=== PATIENT | female | born 1945 | race Caucasian/White ===

== ENCOUNTER 2019-01-22 05:43 | Inpatient (IN) ==
[2019-01-22] MEDS ORDERED: Lactated Ringers 1,000 ML PRIMARY IV ONE ×2 (05:58→06:00)
[2019-01-22] MEDS ORDERED: Vancomycin Inj 1.25gm vial IV ONE ×2 (05:58→19:08)
[2019-01-22] MEDS ORDERED: ceFAZolin Inj 2gm (Premix) 2 GM/50 ML BAG IV ONE ×2 (05:58→06:00)
[2019-01-22] MEDS ORDERED: LIDOCAINE W/ SODIUM BICARB 0.5 ML SYR ONE (05:59)
[2019-01-22] MEDS ORDERED: Sodium Chloride 0.9% 250 ML ONE (05:59)
[2019-01-22] MEDS ORDERED: Nasal Sanitizer POPSWAB ampule 3 AMP (Nozin) PREOP DOSE ENOS SCH (06:00)
[2019-01-22] MEDS ORDERED: LIDOCAINE W/ SODIUM BICARB 0.5 ML SYR SUBD ONE (06:00)
[2019-01-22] MEDS ORDERED: Vancomycin-PHA to Dose IV PRN (06:00)
[2019-01-22 06:16] LABS: BILIRUBIN,URINE NEGATIVE (NEG); CLARITY,URINE CLEAR (CLEAR); COLOR,URINE YELLOW (Y); GLUCOSE, URINE (UA) NEGATIVE (NEG); OCCULT BLOOD,URINE NEGATIVE (NEG); PROTEIN,URINE NEGATIVE (NEG); UROBILINOGEN,URINE 0.2 EU/dL (0.2)
[2019-01-22 06:23] LABS: RBC,URINE 0 /hpf; URINE SAMPLE TYPE CLEAN CATCH URINE
[2019-01-22 06:24] LABS: BACTERIA,URINE MODERATE; SQUAMOUS EPITHELIAL CELL,UR MODERATE
[2019-01-22] MEDS ORDERED: BUPivacaine Inj 0.25% PF - 10ml vial ONE (07:27)
[2019-01-22] MEDS ORDERED: Vancomycin Inj 1gm vial ONE (07:28)
[2019-01-22] MEDS ORDERED: BACITRACIN 50,000 UNIT VIAL IRRIG ONE (07:28)
[2019-01-22] MEDS ORDERED: Sodium Chloride 0.9% vial 50 ML ONE (07:28)
[2019-01-22] MEDS ORDERED: BUPIVACAINE 0.25% W/ EPI - 10 ML VIAL ONE (07:28)
[2019-01-22] MEDS ORDERED: BUPivacaine Liposome/PF (Exparel) Inj 20ml vial INFIL ONE (07:28)
[2019-01-22] MEDS ORDERED: Gentamicin Inj 40 MG/ML VIAL ONE (07:28)
[2019-01-22] MEDS ORDERED: HYDROmorphone 2 MG/1 ML ONE ×2 (07:31→07:32)
[2019-01-22] MEDS ORDERED: ROCURONIUM 10 MG/1 ML - 5 ML VIAL IVP ONE (07:34)
[2019-01-22] MEDS ORDERED: Hetastarch 6% + NS 1,000 ML IV ONE (08:08)
[2019-01-22] MEDS ORDERED: LIDOCAINE HCL 2 % 10 ML JELLY URO-JECT TOPICAL PRN (08:10)
[2019-01-22] MEDS ORDERED: TRANEXAMIC ACID 1,000 MG / 10 ML VIAL ONE (08:23)
[2019-01-22] MEDS ORDERED: fentaNYL Inj 100 MCG/2 ML VIAL IVP PRN (13:43)
[2019-01-22] MEDS ORDERED: LIDOCAINE W/ SODIUM BICARB 0.5 ML SYR SUBD PRN (13:43)
[2019-01-22] MEDS ORDERED: HYDROmorphone 2 MG/1 ML IVP PRN (13:43)
[2019-01-22] MEDS ORDERED: ONDANSETRON 4 MG/2 ML VIAL IVP PRN ×2 (13:43→14:19)
[2019-01-22] MEDS ORDERED: Prochlorperazine Edisylate Inj 10mg/2ml vial IVP PRN ×2 (13:43→14:19)
[2019-01-22] MEDS ORDERED: PROMETHAZINE 25 MG/1 ML VIAL IM PRN (14:19)
[2019-01-22] MEDS ORDERED: HYDROcodone-APAP 10 MG-325 MG TABLET PO PRN (14:19)
[2019-01-22] MEDS ORDERED: Fleet Enema 133ml RECTAL PRN (14:19)
[2019-01-22] MEDS ORDERED: Insulin NPH/Reg 70/30 Kwikpen 100 UNIT/ML INSULN.PEN SUBCUT SCH (14:19)
[2019-01-22] MEDS ORDERED: DOCUSATE 100 MG CAPSULE PO PRN (14:19)
[2019-01-22] MEDS ORDERED: MAGNESIUM 400 MG/5 ML - 30 ML (MILK OF MAGNESIA) PO PRN (14:19)
[2019-01-22] MEDS ORDERED: MAGNESIUM CITRATE 296 ML SOLUTION PO PRN (14:19)
[2019-01-22] MEDS ORDERED: oxyCODONE-ACETAMINOPHEN 5-325 TAB PO PRN (14:19)
[2019-01-22] MEDS ORDERED: DIAZEPAM 10 MG/2 ML (5 MG/1 ML) CARPUJECT IVP PRN (14:19)
[2019-01-22] MEDS ORDERED: Vancomycin-PHA to Dose IV SCH (14:19)
[2019-01-22] MEDS ORDERED: HYDROcodone-APAP 7.5 MG-325 MG TABLET PO PRN (14:19)
[2019-01-22] MEDS ORDERED: DIAZEPAM 5 MG TABLET PO PRN (14:19)
[2019-01-22] MEDS ORDERED: HYDROcodone-APAP 5 MG -325 MG TABLET PO PRN (14:19)
[2019-01-22] MEDS ORDERED: Ondansetron ODT Tab 4 MG TAB PO PRN (14:19)
[2019-01-22] MEDS ORDERED: BISACODYL 5 MG TABLET PO PRN (14:19)
[2019-01-22] MEDS: ceFAZolin Inj 2gm (Premix) 2 GM/50 ML BAG IV SCH (16:59)
[2019-01-22] MEDS ORDERED: INSULIN NPH HUMAN ISOPHANE SUBCUT SCH (19:00)
[2019-01-22] MEDS ORDERED: INSULIN NPH HUMAN ISOPHANE 30 UNIT SUBCUT SCH (19:00)
[2019-01-22] MEDS: metFORMIN 500 MG TABLET PO SCH (20:47)
[2019-01-22] MEDS: ATORVASTATIN 10 MG TABLET PO SCH (20:48)
[2019-01-22] MEDS: Oxybutynin ER Tab 5 MG TAB PO SCH (20:48)
[2019-01-22] MEDS: MORPHINE SULFATE 2 MG/1 ML IVP PRN (20:51)
[2019-01-23] MEDS: MORPHINE SULFATE 2 MG/1 ML IVP PRN (00:17)
[2019-01-23] MEDS: ceFAZolin Inj 2gm (Premix) 2 GM/50 ML BAG IV SCH (00:20)
[2019-01-23] MEDS: oxyCODONE/APAP 7.5/325 Tab 1 TAB TAB PO PRN ×2 (01:55→05:40)
[2019-01-23 04:28] LABS: BASOPHILS # (AUTO) 0.02 10*3/UL; BASOPHILS % (AUTO) 0.2 % (0-1); EOSINOPHILS # (AUTO) 0 10*3/UL; EOSINOPHILS % (AUTO) 0 % (0-8); Hematocrit [HCT] 30.5 % (37.0-47.0); MEAN CORPUSCULAR HGB CONC 32.8 g/dL (33-37); MEAN CORPUSCULAR VOLUME 93.3 FL (81-99); MEAN PLATELET VOLUME 10.2 FL (7.4-12.2); MONOCYTES # (AUTO) 0.83 10*3/UL (0.3-0.8); MONOCYTES % (AUTO) 6.6 % (5-15); NEUTROPHILS # (AUTO) 10.84 10*3/UL; NEUTROPHILS % (AUTO) 85.7 % (50-80); RED BLOOD COUNT 3.27 10^6/uL (4.20-5.40)
[2019-01-23 04:34] LABS: PLATELET MORPHOLOGY COMMENT NORMAL MORPHOLOGY (NORM); RBC MORPHOLOGY COMMENT NORMAL MORPHOLOGY (NORM); WBC MORPHOLOGY COMMENT NORMAL MORPHOLOGY (NORM)
[2019-01-23 04:38] LABS: BLOOD UREA NITROGEN 16 mg/dL (7-22); BUN/CREATININE RATIO 22.85 (6-20)
[2019-01-23] MEDS: LEVOTHYROXINE 112 MCG TABLET PO SCH (05:40)
[2019-01-23] MEDS ORDERED: CYCLOBENZAPRINE 10 MG TABLET PO PRN (06:30)
[2019-01-23] MEDS: Oxybutynin ER Tab 5 MG TAB PO SCH (09:16)
[2019-01-23] MEDS: CHOLECALCIFEROL (VITAMIN D3) 5,000 IU CAPSULE PO SCH (09:16)
[2019-01-23] MEDS: LOSARTAN 25 MG TABLET PO SCH (09:17)
[2019-01-23] MEDS: metFORMIN 500 MG TABLET PO SCH ×2 (09:17→20:16)
[2019-01-23 11:40] LABS: BILIRUBIN,URINE NEGATIVE (NEG); CLARITY,URINE Slightly Cloudy (CLEAR); COLOR,URINE YELLOW (Y); GLUCOSE, URINE (UA) 500 mg/dL (NEG); OCCULT BLOOD,URINE MODERATE (NEG); PROTEIN,URINE TRACE mg/dl (NEG); UROBILINOGEN,URINE 0.2 EU/dL (0.2)
[2019-01-23] MEDS: cefTRIAXone Inj 2 GM in Sodium Chloride 0.9% 100 ML IV SCH (11:43)
[2019-01-23 11:54] LABS: BACTERIA,URINE RARE; SQUAMOUS EPITHELIAL CELL,UR FEW; URINE SAMPLE TYPE CATH SPECIMEN
[2019-01-23] MEDS: ACETAMINOPHEN 325 MG TABLET PO PRN ×2 (14:08→20:15)
[2019-01-23] MEDS: ATORVASTATIN 10 MG TABLET PO SCH (20:17)
[2019-01-23] MEDS: INSULIN NPH HUMAN ISOPHANE 20 UNIT SUBCUT SCH (20:19)
[2019-01-24 05:14] LABS: BASOPHILS # (AUTO) 0.02 10*3/UL; BASOPHILS % (AUTO) 0.1 % (0-1); EOSINOPHILS # (AUTO) 0 10*3/UL; EOSINOPHILS % (AUTO) 0 % (0-8); Hematocrit [HCT] 31.1 % (37.0-47.0); Hemoglobin [HGB] 10.2 g/dL (12.0-16.0); LYMPHOCYTES # (AUTO) 0.89 10*3/uL; MEAN CORPUSCULAR HGB CONC 32.8 g/dL (33-37); MEAN CORPUSCULAR VOLUME 92.8 FL (81-99); MEAN PLATELET VOLUME 10.6 FL (7.4-12.2); MONOCYTES % (AUTO) 6.3 % (5-15); NEUTROPHILS # (AUTO) 12.39 10*3/UL; NEUTROPHILS % (AUTO) 86.8 % (50-80); RED BLOOD COUNT 3.35 10^6/uL (4.20-5.40)
[2019-01-24] MEDS: ACETAMINOPHEN 325 MG TABLET PO PRN ×2 (05:15→12:55)
[2019-01-24] MEDS: LEVOTHYROXINE 112 MCG TABLET PO SCH (05:15)
[2019-01-24 05:16] LABS: PLATELET MORPHOLOGY COMMENT NORMAL MORPHOLOGY (NORM); RBC MORPHOLOGY COMMENT NORMAL MORPHOLOGY (NORM); WBC MORPHOLOGY COMMENT NORMAL MORPHOLOGY (NORM)
[2019-01-24 05:29] LABS: BLOOD UREA NITROGEN 14 mg/dL (7-22); SERUM ALBUMIN 2.7 g/dL (3.5-4.8)
[2019-01-24] MEDS: INSULIN NPH HUMAN ISOPHANE 20 UNIT SUBCUT SCH (07:16)
[2019-01-24] MEDS: metFORMIN 500 MG TABLET PO SCH ×2 (08:25→20:28)
[2019-01-24] MEDS: LOSARTAN 25 MG TABLET PO SCH (08:26)
[2019-01-24] MEDS: CHOLECALCIFEROL (VITAMIN D3) 5,000 IU CAPSULE PO SCH (08:26)
[2019-01-24] MEDS: cefTRIAXone Inj 2 GM in Sodium Chloride 0.9% 100 ML IV SCH (11:29)
[2019-01-24] MEDS: Insulin Lispro Flexpen 300 UNIT/3 ML INSULN.PEN SUBCUT SCH ×2 (11:40→16:32)
[2019-01-24] MEDS: INSULIN NPH HUMAN ISOPHANE SUBCUT SCH (20:27)
[2019-01-24] MEDS: ATORVASTATIN 10 MG TABLET PO SCH (20:28)
[2019-01-25] MEDS: ACETAMINOPHEN 325 MG TABLET PO PRN (04:23)
[2019-01-25] MEDS: LEVOTHYROXINE 112 MCG TABLET PO SCH (04:30)
[2019-01-25 04:33] VITALS: RESP 20
[2019-01-25 05:23] LABS: BASOPHILS # (AUTO) 0.02 10*3/UL; BASOPHILS % (AUTO) 0.1 % (0-1); EOSINOPHILS # (AUTO) 0.03 10*3/UL; EOSINOPHILS % (AUTO) 0.2 % (0-8); Hemoglobin [HGB] 9.4 g/dL (12.0-16.0); LYMPHOCYTES # (AUTO) 1.73 10*3/uL; MEAN CORPUSCULAR HGB CONC 32.4 g/dL (33-37); MEAN CORPUSCULAR VOLUME 92.9 FL (81-99); MEAN PLATELET VOLUME 10.6 FL (7.4-12.2); MONOCYTES # (AUTO) 0.96 10*3/UL (0.3-0.8); NEUTROPHILS # (AUTO) 10.98 10*3/UL; NEUTROPHILS % (AUTO) 79.8 % (50-80); RED BLOOD COUNT 3.12 10^6/uL (4.20-5.40)
[2019-01-25 05:24] LABS: PLATELET MORPHOLOGY COMMENT NORMAL MORPHOLOGY (NORM); RBC MORPHOLOGY COMMENT NORMAL MORPHOLOGY (NORM); WBC MORPHOLOGY COMMENT NORMAL MORPHOLOGY (NORM)
[2019-01-25 06:44] VITALS: BP 145/78; TEMP 99; O2SAT 95
[2019-01-25] MEDS: INSULIN NPH HUMAN ISOPHANE SUBCUT SCH (07:19)
[2019-01-25] MEDS: Insulin Lispro Flexpen 300 UNIT/3 ML INSULN.PEN SUBCUT SCH (07:19)
[2019-01-25] MEDS: CHOLECALCIFEROL (VITAMIN D3) 5,000 IU CAPSULE PO SCH (08:25)
[2019-01-25] MEDS: LOSARTAN 25 MG TABLET PO SCH (08:25)
[2019-01-25] MEDS: metFORMIN 500 MG TABLET PO SCH (08:25)
[2019-01-25] MEDS: cefTRIAXone Inj 2 GM in Sodium Chloride 0.9% 100 ML IV SCH (10:54)
== END 2019-01-25 12:14 | disposition home or self-care (01) | DRG 455 ==
LOC: OPS 05:43 → MED/SURG 14:25
PROVIDERS: ADMIT Neurological Surgery; ATTEND Neurological Surgery

== ENCOUNTER 2019-02-21 05:55 | Inpatient (IN) ==
[2019-02-21] MEDS ORDERED: Lactated Ringers 1,000 ML PRIMARY IV ONE ×2 (06:00→08:26)
[2019-02-21] MEDS ORDERED: LIDOCAINE W/ SODIUM BICARB 0.5 ML SYR SUBD ONE (06:00)
[2019-02-21] MEDS ORDERED: Vancomycin-PHA to Dose IV PRN ×2 (06:00→11:15)
[2019-02-21] MEDS ORDERED: ceFAZolin Inj 2gm (Premix) 2 GM/50 ML BAG IV ONE (06:00)
[2019-02-21] MEDS ORDERED: Nasal Sanitizer POPSWAB ampule 3 AMP (Nozin) PREOP DOSE ENOS SCH (06:00)
[2019-02-21 06:44] LABS: BASOPHILS # (AUTO) 0.02 10*3/UL; BASOPHILS % (AUTO) 0.3 % (0-1); EOSINOPHILS # (AUTO) 0.15 10*3/UL; EOSINOPHILS % (AUTO) 2.1 % (0-8); Hematocrit [HCT] 36.9 % (37.0-47.0); LYMPHOCYTES # (AUTO) 2.28 10*3/uL; MEAN CORPUSCULAR HGB CONC 32.5 g/dL (33-37); MEAN CORPUSCULAR VOLUME 92.3 FL (81-99); MEAN PLATELET VOLUME 9.9 FL (7.4-12.2); MONOCYTES # (AUTO) 0.49 10*3/UL (0.3-0.8); MONOCYTES % (AUTO) 6.8 % (5-15); NEUTROPHILS # (AUTO) 4.26 10*3/UL; NEUTROPHILS % (AUTO) 59.1 % (50-80)
[2019-02-21 06:48] LABS: PLATELET MORPHOLOGY COMMENT NORMAL MORPHOLOGY (NORM); RBC MORPHOLOGY COMMENT NORMAL MORPHOLOGY (NORM); WBC MORPHOLOGY COMMENT NORMAL MORPHOLOGY (NORM)
[2019-02-21 06:56] LABS: BLOOD UREA NITROGEN 18 mg/dL (7-22)
[2019-02-21] MEDS ORDERED: Sodium Chloride 0.9% vial 30 ML ONE (07:01)
[2019-02-21] MEDS ORDERED: Vancomycin Inj 1gm vial ONE ×3 (07:01→08:59)
[2019-02-21] MEDS ORDERED: BUPivacaine Inj 0.25% PF - 10ml vial ONE (07:01)
[2019-02-21] MEDS ORDERED: BACITRACIN 50,000 UNIT VIAL IRRIG ONE ×2 (07:01→08:58)
[2019-02-21] MEDS ORDERED: Gentamicin Inj 40 MG/ML VIAL ONE ×2 (07:01→08:58)
[2019-02-21] MEDS ORDERED: PROPOFOL 10 MG/1 ML (200 MG/20 ML) VIAL IV ONE (07:07)
[2019-02-21] MEDS ORDERED: fentaNYL Inj 250 MCG/5 ML VIAL ONE (07:08)
[2019-02-21] MEDS ORDERED: MIDAZOLAM 5 MG/1 ML ONE (07:08)
[2019-02-21] MEDS ORDERED: ROCURONIUM 10 MG/1 ML - 5 ML VIAL IVP ONE (07:09)
[2019-02-21] MEDS ORDERED: LIDOCAINE MPF 2% - 5 ML (20 MG/1 ML) ONE (07:10)
[2019-02-21] MEDS ORDERED: Gabapentin 600 MG TABLET PO ONE ×2 (07:12→07:13)
[2019-02-21] MEDS ORDERED: PANTOPRAZOLE 20 MG TABLET.DR PO ONE ×2 (07:12→07:13)
[2019-02-21] MEDS ORDERED: CELECOXIB 200 MG CAPSULE PO ONE ×2 (07:12→07:13)
[2019-02-21] MEDS ORDERED: ACETAMINOPHEN 500 MG TABLET PO ONE ×2 (07:12→07:13)
[2019-02-21] MEDS ORDERED: DEXMEDETOMIDINE HCL 200 MCG/2 ML VIAL IV ONE (07:22)
[2019-02-21] MEDS ORDERED: Vancomycin Inj 1.25gm vial IV ONE (07:23)
[2019-02-21] MEDS ORDERED: Sodium Chloride 0.9% 250 ML ONE (07:23)
[2019-02-21] MEDS ORDERED: KETAMINE 100 MG/1 ML - 5 ML ONE (08:07)
[2019-02-21] MEDS ORDERED: LIDOCAINE HCL 2 % 10 ML JELLY URO-JECT TOPICAL PRN (08:21)
[2019-02-21] MEDS ORDERED: Sodium Chloride 0.9% vial 20 ML ONE (08:58)
[2019-02-21] MEDS ORDERED: KETOROLAC 30 MG/1 ML VIAL ONE (09:17)
[2019-02-21] MEDS ORDERED: SUGAMMADEX SODIUM 200 MG/2 ML VIAL IV ONE (09:18)
[2019-02-21] MEDS ORDERED: ONDANSETRON 4 MG/2 ML VIAL IVP PRN ×2 (10:23→11:15)
[2019-02-21] MEDS ORDERED: LIDOCAINE W/ SODIUM BICARB 0.5 ML SYR SUBD PRN (10:23)
[2019-02-21] MEDS: HYDROmorphone 2 MG/1 ML IVP PRN ×2 (10:43→10:53)
[2019-02-21] MEDS ORDERED: HYDROmorphone 2 MG/1 ML ONE (10:43)
[2019-02-21] MEDS ORDERED: MAGNESIUM CITRATE 296 ML SOLUTION PO PRN (11:15)
[2019-02-21] MEDS ORDERED: MAGNESIUM 400 MG/5 ML - 30 ML (MILK OF MAGNESIA) PO PRN (11:15)
[2019-02-21] MEDS ORDERED: BISACODYL 5 MG TABLET PO PRN (11:15)
[2019-02-21] MEDS ORDERED: HYDROcodone-APAP 10 MG-325 MG TABLET PO PRN (11:15)
[2019-02-21] MEDS ORDERED: CYCLOBENZAPRINE 10 MG TABLET PO PRN (11:15)
[2019-02-21] MEDS ORDERED: PROMETHAZINE 25 MG/1 ML VIAL IM PRN (11:15)
[2019-02-21] MEDS ORDERED: HYDROcodone-APAP 7.5 MG-325 MG TABLET PO PRN (11:15)
[2019-02-21] MEDS ORDERED: HYDROcodone-APAP 5 MG -325 MG TABLET PO PRN (11:15)
[2019-02-21] MEDS ORDERED: Fleet Enema 133ml RECTAL PRN (11:15)
[2019-02-21] MEDS ORDERED: DOCUSATE 100 MG CAPSULE PO PRN (11:15)
[2019-02-21] MEDS ORDERED: Prochlorperazine Edisylate Inj 10mg/2ml vial IVP PRN (11:15)
[2019-02-21] MEDS ORDERED: Ondansetron ODT Tab 4 MG TAB PO PRN (11:15)
[2019-02-21] MEDS ORDERED: ACETAMINOPHEN 325 MG TABLET PO PRN (12:44)
[2019-02-21] MEDS: ceFAZolin Inj 2gm (Premix) 2 GM/50 ML BAG IV SCH (16:35)
[2019-02-21] MEDS: metFORMIN 500 MG TABLET PO SCH (20:42)
[2019-02-21] MEDS: ATORVASTATIN 10 MG TABLET PO SCH (20:42)
[2019-02-21] MEDS ORDERED: OXYBUTYNIN 5 MG PO SCH (21:00)
[2019-02-21] MEDS ORDERED: Insulin NPH Kwikpen Inj 100 UNIT/ML INSULN.PEN SUBCUT SCH (21:00)
[2019-02-22] MEDS: ceFAZolin Inj 2gm (Premix) 2 GM/50 ML BAG IV SCH ×4 (00:36→23:50)
[2019-02-22 04:30] LABS: BASOPHILS # (AUTO) 0.02 10*3/UL; BASOPHILS % (AUTO) 0.2 % (0-1); EOSINOPHILS # (AUTO) 0.09 10*3/UL; EOSINOPHILS % (AUTO) 0.9 % (0-8); Hematocrit [HCT] 32.5 % (37.0-47.0); Hemoglobin [HGB] 10.4 g/dL (12.0-16.0); MEAN CORPUSCULAR VOLUME 93.9 FL (81-99); MONOCYTES % (AUTO) 7.9 % (5-15); NEUTROPHILS # (AUTO) 7.18 10*3/UL; NEUTROPHILS % (AUTO) 70.9 % (50-80); RED BLOOD COUNT 3.46 10^6/uL (4.20-5.40)
[2019-02-22 04:40] LABS: BLOOD UREA NITROGEN 14 mg/dL (7-22); BUN/CREATININE RATIO 23.33 (6-20)
[2019-02-22 04:42] LABS: PLATELET MORPHOLOGY COMMENT NORMAL MORPHOLOGY (NORM); RBC MORPHOLOGY COMMENT NORMAL MORPHOLOGY (NORM); WBC MORPHOLOGY COMMENT NORMAL MORPHOLOGY (NORM)
[2019-02-22] MEDS: LEVOTHYROXINE 112 MCG TABLET PO SCH (05:02)
[2019-02-22] MEDS: Insulin NPH Kwikpen Inj 100 UNIT/ML INSULN.PEN SUBCUT SCH ×2 (08:01→21:18)
[2019-02-22] MEDS ORDERED: LOSARTAN 25 MG TABLET PO SCH (09:00)
[2019-02-22] MEDS ORDERED: Insulin NPH Kwikpen Inj 100 UNIT/ML INSULN.PEN SUBCUT SCH ×2 (09:00→21:00)
[2019-02-22] MEDS: metFORMIN 500 MG TABLET PO SCH ×2 (09:09→21:17)
[2019-02-22] MEDS: CHOLECALCIFEROL (VITAMIN D3) 5,000 IU CAPSULE PO SCH (09:09)
[2019-02-22] MEDS: ASPIRIN EC 81 MG TABLET PO SCH (09:10)
[2019-02-22] MEDS: HEPARIN 500 UNIT/5 ML SYRINGE FOR CENTRAL LINE IVP PRN (10:42)
[2019-02-22] MEDS: ATORVASTATIN 10 MG TABLET PO SCH (21:17)
[2019-02-22] MEDS ORDERED: ceFAZolin Inj 2gm (Premix) 2 GM/50 ML BAG IV ONE (23:47)
[2019-02-23] MEDS: HEPARIN 500 UNIT/5 ML SYRINGE FOR CENTRAL LINE IVP PRN (00:29)
[2019-02-23] MEDS: LEVOTHYROXINE 112 MCG TABLET PO SCH (05:18)
[2019-02-23] MEDS: Insulin NPH Kwikpen Inj 100 UNIT/ML INSULN.PEN SUBCUT SCH ×2 (07:28→20:27)
[2019-02-23] MEDS: ceFAZolin Inj 2gm (Premix) 2 GM/50 ML BAG IV SCH ×2 (09:26→16:20)
[2019-02-23] MEDS: CHOLECALCIFEROL (VITAMIN D3) 5,000 IU CAPSULE PO SCH (09:26)
[2019-02-23] MEDS: ASPIRIN EC 81 MG TABLET PO SCH (09:26)
[2019-02-23] MEDS: metFORMIN 500 MG TABLET PO SCH ×2 (09:26→20:27)
[2019-02-23] MEDS: ATORVASTATIN 10 MG TABLET PO SCH (20:26)
[2019-02-24] MEDS: HEPARIN 500 UNIT/5 ML SYRINGE FOR CENTRAL LINE IVP PRN ×2 (00:41→10:01)
[2019-02-24] MEDS: LEVOTHYROXINE 112 MCG TABLET PO SCH (05:00)
[2019-02-24] MEDS ORDERED: Vancomycin Inj 1.25gm vial IV ONE (07:08)
[2019-02-24] MEDS ORDERED: Sodium Chloride 0.9% 250 ML ONE (07:12)
[2019-02-24] MEDS: ASPIRIN EC 81 MG TABLET PO SCH (08:27)
[2019-02-24] MEDS: CHOLECALCIFEROL (VITAMIN D3) 5,000 IU CAPSULE PO SCH (08:27)
[2019-02-24] MEDS: metFORMIN 500 MG TABLET PO SCH (08:27)
[2019-02-24] MEDS: Insulin NPH Kwikpen Inj 100 UNIT/ML INSULN.PEN SUBCUT SCH (08:52)
[2019-02-24] MEDS: ceFAZolin Inj 2gm (Premix) 2 GM/50 ML BAG IV SCH ×2 (09:12)
[2019-02-24 11:03] VITALS: BP 128/70; RESP 18; TEMP 97.3; O2SAT 94
== END 2019-02-24 11:55 | disposition home or self-care (01) | DRG 857 ==
LOC: OPS 05:55 → EDSTATUS 07:30 → MED/SURG 11:04
PROVIDERS: ADMIT Neurological Surgery; ATTEND Neurological Surgery